=== PATIENT | female | born 1975 | race Hispanic/Latino ===

== ENCOUNTER 2018-10-08 14:42 | Emergency (ER) | payer OTHER, MEDICAID, SELFPAY ==
[2018-10-08 14:45] VITALS: BP 100/71; PULSE 85; RESP 16; TEMP 36.8; O2SAT 100
--- NOTE | 2018-10-08 16:06 | ED.URI ---
HPI - URI/Sore Throat <Carleen Quintana PA-C - Last Filed: 10/08/18 21:52> General Chief Complaint: Upper Respiratory Symptoms Stated Complaint: sinus inf not healing, rt ear pain Time Seen by Provider: 10/08/18 16:30 Source: patient Mode of arrival: ambulatory Limitations: no limitations History of Present Illness HPI Narrative: This 43-year-old female comes in due to persistent right ear symptoms. She states that on September 24, she had a virus that she describes as like a cold, with congestion. She saw her PCP on the was told she had a sinus infection, and that this was likely viral and to manage symptoms. She was seen at another local ER due to worsening headache and right earache on the and at that point apparently had a right ear infection. She was treated with amoxicillin and a pain medication. She states that she still has some sinus congestion, and her right ear feels plugged and clogged but pain is improved with the antibiotic ( she is supposed to finish it on Saturday. She does not have fever. She is not having any new respiratory issues or any other new complaints today. She states her hearing seems somewhat muscle due to the congestion. Related Data Home Medications Medication Instructions Recorded Confirmed amoxicillin 500 mg PO TID 10/08/18 Allergies Allergy/AdvReac Type Severity Reaction Status Date / Time No Known Allergies Allergy Uncoded 11/13/17 12:46 Review of Systems <Carleen Quintana PA-C - Last Filed: 10/08/18 21:52> Review of Systems ROS Unobtainable: All systems reviewed & are unremarkable except as noted in HPI and below PFSH <Carleen Quintana PA-C - Last Filed: 10/08/18 21:52> Medical History Healthy female adult (Chronic) Surgical History S/P (Resolved) Social History Smoking Status: Never smoker Social History Smoking Status: Never smoker Exam <Carleen Quintana PA-C - Last Filed: 10/08/18 21:52> Narrative Exam Narrative: GENERAL APPEARANCE: Patient sitting comfortably, in no distress. HEAD: No sinus TTP. EYES: PERRL, EOMI. EARS: Normal auditory canals, TMS intact with normal light reflexes, R. is minimally injected ORAL CAVITY: Normal oropharynx. THROAT: Clear, PND noted NECK/THYROID: Neck supple, full range of motion, no cervical lymphadenopathy. LUNGS: Clear to auscultation bilaterally, clear to percussion, no cough on exam. HEART: RRR without murmur, nl S1, S2, no S3 or S4. Initial Vital Signs Initial Vital Signs: Vital Signs Temperature 98.2 F 10/08/18 14:45 Pulse Rate 85 10/08/18 14:45 Respiratory Rate 16 10/08/18 14:45 Blood Pressure 100/71 10/08/18 14:45 Pulse Oximetry 100 10/08/18 14:45 <Peter Sepulveda DO - Last Filed: 10/09/18 07:04> Initial Vital Signs Initial Vital Signs: Vital Signs Temperature 98.2 F 10/08/18 14:45 Pulse Rate 85 10/08/18 14:45 Respiratory Rate 16 10/08/18 14:45 Blood Pressure 100/71 10/08/18 14:45 Pulse Oximetry 100 10/08/18 14:45 Course <Carleen Quintana PA-C - Last Filed: 10/08/18 21:52> Vital Signs - 8 hr 10/08/18 14:45 Temperature 98.2 F Pulse Rate 85 Respiratory Rate 16 Blood Pressure 100/71 Pulse Oximetry 100 <Peter Sepulveda DO - Last Filed: 10/09/18 07:04> Vital Signs - 8 hr 10/08/18 14:45 Temperature 98.2 F Pulse Rate 85 Respiratory Rate 16 Blood Pressure 100/71 Pulse Oximetry 100 Discharge Plan Departure Patient Disposition: Home Clinical Impression: Sinusitis Qualifiers: Sinusitis location: unspecified location Chronicity: subacute Qualified Code(s): J01.90 - Acute sinusitis, unspecified Discharge Date/Time: 10/08/18 17:01 Interventions: ED Discharge Assessment Last Done: 10/08/18 16:59 Instructions: DI for Sinusitis Activity Restrictions/Additional Instructions: as we talked about, the vast majority of sinus infections are due to viruses and do not get better with antibiotic treatment. From what you have describes, it sounds like you may have had an ear infection secondary to the sinusitis. Since it has gotten better on the amoxicillin that you started, please finish it. your ear looks only minimally inflamed today. Please start taking pseudoephedrine (you need to ask the pharmacist for this ) to help with congestion. You can also start a steroid nasal spray, such as Flonase, eoin-naa-taapjya and use that every day. Follow-up with your PCP next week for recheck as you may need further testing or referral if not continuing to get better. Please return to the ED if you have any acutely worsening symptoms. de lo que hablamos, la gran mayor?a de las infecciones sinusales se deben a virus y no mejoran con el tratamiento con antibi?ticos. Por lo que montoya descrito, parece que puede rodney tenido berta infecci?n de o?do secundaria a la sinusitis. Ya que montoya radha en la amoxicilina que comenz?, final?digna. Tu oreja se ve solo m?nimamente inflamada hoy. Comience a leila pseudoefedrina (debe pedirle esto al farmac?utico) para ayudar con la congesti?n. Tambi?n puede iniciar un aerosol nasal con esteroides, edgardo Flonase, de venta apolinar y usarlo todos los d?as. Paulo un seguimiento con davila PCP la pr?xima semana para volver a realizar la verificaci?n, ya que es posible que necesite m?s pruebas o derivaciones si no contin?a mejorando. Por favor regrese al servicio de urgencias si tiene s?ntomas que empeoran de manera aguda. Yo Prescriptions: No Action amoxicillin 500 mg capsule 500 mg PO TID RF: 0 Referrals: Peter Oneil MD [Non-Staff] - Stand Alone Forms: Work Release Note <Peter Sepulveda DO - Last Filed: 10/09/18 07:04> Cosign ED Attending Nallelyature Attestation: I was available for consultation during this patient's emergency department encounter
== END 2018-10-08 17:01 | disposition home or self-care (01) ==
PROVIDERS: Emergency Provider Internal Medicine
DX: J01.90 Acute sinusitis, unspecified (principal)
CPT/HCPCS: 99282

== ENCOUNTER 2024-04-10 17:46 | Emergency (ER) | payer BC, SELFPAY ==
[2024-04-10] VITALS (8 sets, daily range): BP systolic 112–123; BP diastolic 57–81; PULSE 57–72; RESP 14–22; TEMP 36.3; O2SAT 99–100; BMI 24.0
--- NOTE | 2024-04-10 17:59 | EKG_ITS ---
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
--- NOTE | 2024-04-10 17:59 | DI.RAD.S_ITS ---
PROCEDURE: XR CHEST 1V INDICATIONS: chest pain TECHNIQUE: One view of the chest was acquired. COMPARISON: None. FINDINGS: Surgical changes and devices: None. Lungs and pleura: Lungs are clear. No pleural effusions or pneumothorax. Mediastinum: Mediastinal contours appear normal. Heart size is normal. Bones and chest wall: No suspicious bony lesions. Overlying soft tissues appear unremarkable. IMPRESSION: No acute pulmonary process. Dictated by: Shara Werner M.D. on 04/10/2024 at 18:43 Approved by: Shara Werner M.D. on 04/10/2024 at 18:43
[2024-04-10 18:09] LABS: Appearance Urine UA CLEAR; Bilirubin Urine UA NEGATIVE (NEGATIVE); Color Urine UA YELLOW; Glucose Urine UA NEGATIVE (Negative); Ketones Urine UA NEGATIVE (NEGATIVE); Leukocyte Esterase Urine UA NEGATIVE (NEGATIVE); Nitrite Urine UA NEGATIVE (Negative); Occult Blood Urine UA TRACE-INTACT (Negative); Protein Urine UA NEGATIVE (Negative); Specific Gravity Urine UA 1.025 (1.000-1.035); Urobilinogen Urine UA 0.2 E.U./dL (0.2)
[2024-04-10 18:16] LABS: Bacteria Urine Occasional (0-1); Culture Indicated Urine Cult Not Indicated; Mucus Urine 1+ (Negative); RBC Urine 0-1/HPF (0-5/HPF); Squamous Epithelial Cell Urine 5-10 /HPF (0-5/HPF); Urine Volume 10mL (spun); WBC Urine 0-1/HPF (0-5/HPF)
[2024-04-10 19:08] LABS: Add Manual Diff / Slide Review NO; Basophils Absolute Auto 0 /uL (0-100); Basophils Percent Auto 0.4 % (0-2); Eosinophils Absolute Auto 100 /uL (0-450); Eosinophils Percent Auto 1.3 % (2-4); Hematocrit 40.2 % (36-46); Hemoglobin 13.6 g/dL (12.0-16.0); Lymphocytes Absolute Auto 1400 /uL (1100-4500); Lymphocytes Percent Auto 22.1 % (25-40); Mean Corpuscular HGB Conc 33.9 % (30-36); Mean Corpuscular Hemoglobin 30.1 PG (26-34); Mean Corpuscular Volume 88.8 fL (80-100); Monocytes Absolute Auto 300 /uL (0-900); Monocytes Percent Auto 5.1 % (3-14); Neutrophils Absolute Auto 4400 /uL (1500-7000); Neutrophils Percent Auto 71.1 % (50-75); Platelet Count 187 X10^3/uL (150-400); Red Blood Cell Count 4.52 X10^6/uL (4.0-5.2); Red Cell Distribution Width 13.9 % (11.6-14.8); White Blood Cell Count 6.2 X10^3/uL (4.5-11.0)
[2024-04-10 19:09] LABS: Prothrombin Time 10.9 SECONDS (9.4-12.5)
[2024-04-10 19:12] LABS: PTT Partial Thromboplastin Tim 32 SECONDS (25.1-36.5)
[2024-04-10 19:14] LABS: Alanine Aminotransferase 15 IU/L (<35); Albumin 4.5 g/dL (3.5-5.0); Albumin Globulin Ratio 1.5 (1.0-2.8); Alkaline Phosphatase 57 U/L (38-126); Aspartate Aminotransferase 19 IU/L (14-36); BUN Creatinine Ratio 24.1 (6-22); Bilirubin Total 1.1 mg/dL (0.2-1.3); Blood Urea Nitrogen 13 mg/dL (7-17); Calcium 9.5 mg/dL (8.4-10.2); Carbon Dioxide 30 mmol/L (22-32); Chloride 101 mmol/L (98-107); Creatine Kinase 46 U/L (30-135); Estimated Glomerular Filt Rate > 60 mL/min (>60); Globulin 3.1 g/dL (1.7-4.1); Glucose 82 mg/dL (70-100); HEMOLYSIS < 15 (0-50); Lipase 90 U/L (23-300); Magnesium 2.1 mg/dL (1.6-2.3); Potassium 3.7 mmol/L (3.4-5.1); Sodium 136 mmol/L (137-145); Total Protein 7.6 g/dL (6.3-8.2)
[2024-04-10 19:25] LABS: NT-proBNP (BNP-Adult 18+) 21 pg/mL (<125); Troponin I < 0.012 ng/mL (0.01-0.034)
--- NOTE | 2024-04-10 20:41 | PC.NURSE ---
patient complaints of fast heart rate and it makes her feel funny. She denies chest pain, chest pressure, SOB, nausea, and vomiting
--- NOTE | 2024-04-10 20:53 | ED.ARRPALP ---
HPI - Arrhythmia/Palpitations General Chief Complaint: Arrhythmia/Palpitations Stated Complaint: abnormal labs, sent by PCP Time Seen by Provider: 04/10/24 20:53 History of Present Illness HPI narrative: Patient is a 48-year-old female Iraqi speaking offered interpretive services but declined she used her daughter at bedside. She reports that she has been having palpitations off and on for awhile. She felt like there little bit stronger today. She has had dizziness off and on and she sometimes feels nauseous no numbness tingling or weakness she has not passed out. She reports that she just saw her primary care provider she would some blood work drawn. On the monitor here in the ED she has been noted to have some PVC sometimes trigeminy but it has not sustained. She denies any fever chills or any other symptoms Related Data Home Medications Medication Instructions Recorded Confirmed amoxicillin 500 mg capsule 500 mg PO TID 10/08/18 Allergies Allergy/AdvReac Type Severity Reaction Status Date / Time No Known Drug Allergies Allergy Verified 04/10/24 18:39 Patient History Medical History Healthy female adult Surgical History S/P Social History Smoking Status: Never smoker Smoking Status: Never smoker Exam Initial Vital Signs Initial Vital Signs: Vital Signs Temperature 97.3 F L 04/10/24 17:48 Pulse Rate 64 04/10/24 17:48 Respiratory Rate 16 04/10/24 17:48 Blood Pressure 121/81 04/10/24 17:48 Pulse Oximetry 100 04/10/24 17:48 Oxygen Delivery Method Room Air 04/10/24 17:48 GENERAL: Alert pleasant 48-year-old female and in no acute distress. HEENT: Head atraumatic,EOMI, pupils reactive, face symmetric, moist mucous membranes CARDIOVASCULAR: Regular rate and rhythm without murmurs, rubs or gallops. RESPIRATORY: Breath sounds equal bilaterally, no wheezes rales or rhonchi. ABDOMEN: Soft, nontender. Normoactive bowel sounds all 4 quadrants. No guarding or rebound. EXTREMITIES: Normal range of motion, no clubbing or edema. Neurovascularly intact NEUROLOGICAL: Alert and oriented x4.Normal gait and speech. Cranial nerves II through XII grossly intact. SKIN: Warm, dry, no laceration, no petechiae, no rashes or lesions. Course Orders Ordered: ED Orders 04/10/24 20:46 EKG-12 Lead Stat Vital Signs Vital signs: Vital Signs - 8 hr 04/10/24 20:51 04/10/24 20:51 04/10/24 21:00 Pulse Rate 57 L 57 L Respiratory Rate 19 20 Blood Pressure 123/59 L Pulse Oximetry 100 100 04/10/24 21:00 Pulse Rate Respiratory Rate Blood Pressure 122/60 Pulse Oximetry MDM - Arrhythmia/Palpitations Lab Data 04/10/24 18:08 04/10/24 18:08 Labs: Lab Results 04/10/24 04/10/24 Range/Units 18:02 18:08 WBC 6.2 (4.5-11.0) X10^3/uL RBC 4.52 (4.0-5.2) X10^6/uL Hgb 13.6 (12.0-16.0) g/dL Hct 40.2 (36-46) % MCV 88.8 (80-100) fL MCH 30.1 (26-34) PG MCHC 33.9 (30-36) % RDW 13.9 (11.6-14.8) % Plt Count 187 (150-400) X10^3/uL Neut % (Auto) 71.1 (50-75) % Lymph % (Auto) 22.1 L (25-40) % [place] % (Auto) 5.1 (3-14) % Eos % (Auto) 1.3 L (2-4) % Baso % (Auto) 0.4 (0-2) % Neut # (Auto) 4400 (5336-9774) /uL Lymph # (Auto) 1400 (7305-1632) /uL [place] # (Auto) 300 (0-900) /uL Eos # (Auto) 100 (0-450) /uL Baso # (Auto) 0 (0-100) /uL PT 10.9 (9.4-12.5) SECONDS INR 1.0 (0.9-1.3) APTT 32 (25.1-36.5) SECONDS Sodium 136 L (137-145) mmol/L Potassium 3.7 (3.4-5.1) mmol/L Chloride 101 (98-107) mmol/L Carbon Dioxide 30 (22-32) mmol/L BUN 13 (7-17) mg/dL Creatinine 0.54 (0.52-1.04) mg/dL Estimated GFR > 60 (>60) mL/min BUN/Creatinine Ratio 24.1 H (6-22) Glucose 82 (70-100) mg/dL Calcium 9.5 (8.4-10.2) mg/dL Magnesium 2.1 (1.6-2.3) mg/dL Total Bilirubin 1.1 (0.2-1.3) mg/dL AST 19 (14-36) IU/L ALT 15 (<35) IU/L Alkaline Phosphatase 57 (38-126) U/L Total Creatine Kinase 46 (30-135) U/L Troponin I < 0.012 (0.01-0.034) ng/mL NT-Pro-B Natriuret Pep 21 (<125) pg/mL Total Protein 7.6 (6.3-8.2) g/dL Albumin 4.5 (3.5-5.0) g/dL Globulin 3.1 (1.7-4.1) g/dL Albumin/Globulin Ratio 1.5 (1.0-2.8) Lipase 90 (23-300) U/L Urine Color Yellow Urine Appearance Clear Urine pH 6.0 (4.5-8.0) Ur Specific [place] 1.025 (1.000-1.035) Urine Protein Negative (Negative) Urine Glucose (UA) Negative (Negative) g/dL Urine Ketones Negative (NEGATIVE) Urine Occult Blood Trace-intact (Negative) Urine Nitrate Negative (Negative) Urine Bilirubin Negative (NEGATIVE) Urine Urobilinogen 0.2 (0.2) E.U./dL Ur Leukocyte Esterase Negative (NEGATIVE) Urine RBC 0-1/hpf (0-5/HPF) Urine WBC 0-1/hpf (0-5/HPF) Ur Squamous Epith Cells 5-10 /hpf H (0-5/HPF) Urine Bacteria Occasional (0-1) (None) Urine Mucus 1+ H (Negative) Ur Culture Indicated? Cult not indicated Vol Urine Centrifuged 10ml (spun) Imaging Data Chest x-ray: Radiologist's Impresson: PROCEDURE: XR CHEST 1V INDICATIONS: chest pain TECHNIQUE: One view of the chest was acquired. COMPARISON: None. FINDINGS: Surgical changes and devices: None. Lungs and pleura: Lungs are clear. No pleural effusions or pneumothorax. Mediastinum: Mediastinal contours appear normal. Heart size is normal. Bones and chest wall: No suspicious bony lesions. Overlying soft tissues appear unremarkable. IMPRESSION: No acute pulmonary process. Dictated by: Shara Werner M.D. on 04/10/2024 at 18:43 Approved by: Shara Werner M.D. on 04/10/2024 at 18:43 ECG Data Attestation: I personally reviewed and interpreted this ECG as follows: Interpretation: Normal sinus rhythm rate 64 ND interval 120 QRS 74 QTC 433 no ischemia no PVCs EKG 2. Heart rate 65 no ischemia no PVCs MDM Narrative Medical decision making narrative: Patient healthy 48-year-old female who presents today with palpitations. She is somewhat symptomatic with some dizziness. Reports feeling it at night sometimes kneeling sometimes standing. She has no neurologic deficits. She is found to have some PVCs and trigeminy while in the ED but it is not sustained. Blood work has overall been reviewed she has no significant leukocytosis anemia less likely light abnormality KIKI and her troponin is negative EKGs both show sinus rhythm without PVCs and no Chest x-ray has been reviewed without cardiopulmonary process Discussion with patient and daughters recommend a ZIO monitor and patch. At this time may need for further workup or admission Discharge Plan Departure Patient Disposition: Home Clinical Impression: Palpitations Instructions: DI for Palpitations Activity Restrictions/Additional Instructions: *You have been diagnosed with palpitations *What to do: At this time please talk to your monitor about ZIO patch, it will monitor your heart rate *Continue to take medications as directed *Follow up with your primary care provider in 2-3 days or call [phone] *Return to ER if you should have increased dizziness palpitations passing out weakness [or] any new, worsening or concerning symptoms Prescriptions: No Action amoxicillin 500 mg capsule 500 mg PO TID Referrals: Jarett,Doctor, [Primary Care Provider] - Stand Alone Forms: Patient Portal/API
--- NOTE | 2024-04-10 20:56 | EKG_ITS ---
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
== END 2024-04-10 21:18 | disposition home or self-care (01) ==
PROVIDERS: Emergency Medicine; Emergency Provider Emergency Medicine
DX: R00.2 Palpitations (principal); R07.9 Chest pain, unspecified; R42 Dizziness and giddiness
CPT/HCPCS: 36415; 71045; 80053; 81001; 82550; 83690; 83735; 83880; 84484; 85025; 85610; 85730; 93005; 99283; 99284